=== PATIENT | male | born 1960 | race African-American/Black ===

== ENCOUNTER 2016-06-02 09:18 | Emergency (ER) | payer MEDICAID ==
[2016-06-02] MEDS ORDERED: ASPIRIN 81 MG TABLET, CHEWABLE PO ONE (10:24)
[2016-06-02] MEDS ORDERED: METOCLOPRAMIDE HCL ORAL SOLN 10 MG/10 ML UDCUP PO ONE (10:25)
[2016-06-02] MEDS ORDERED: MAG HYDROX/AL HYDROX/SIMETH SUSP 30 ML UDCUP PO ONE (10:25)
[2016-06-02] MEDS ORDERED: LIDOCAINE 2% VISCOUS SOLN 20 ML UDCUP PO ONE (10:25)
--- NOTE | 2016-06-02 10:30 | ER Document Report ---
ED General - General Chief Complaint: Difficulty Swallowing Stated Complaint: THROAT PAIN Mode of Arrival: Ambulatory Information source: Patient Notes: This is a 55-year-old male with a history of hypertension who presents with complaint of dry mouth and trouble swallowing. He states that for the past 3 days he has had a very dry mouth and he can only swallow when he drinks water because his mouth is so dry. He also states that for the past few weeks he has had intermittent epigastric discomfort and sometimes radiating into his chest. Chart review reveals that he was seen in the emergency department 4 or 5 separate times in 2014 for very similar complaints of mouth dryness, trouble swallowing and chest discomfort. Patient is tolerating PO without difficulty and drinking water in the room. He denies any shortness of breath. No nausea vomiting. No fevers or chills. He has no current chest pain. TRAVEL OUTSIDE OF THE [place] IN LAST 30 DAYS: No - Related Data Allergies/Adverse Reactions: codeine [Codeine] Allergy (Verified 06/02/16 09:29) Generalized Itching esomeprazole magnesium [From Nexium] Allergy (Verified 06/02/16 09:29) Generalized edema Past Medical History - General Information source: Patient, [facility] Records - Social History Smoking Status: Never Smoker Chew tobacco use (# tins/day): No Frequency of alcohol use: Occasional Drug Abuse: None Family History: Reviewed & Not Pertinent Patient has suicidal ideation: No Patient has homicidal ideation: No - Past Medical History Cardiac Medical History: Reports: Hx Hypertension Renal/ Medical History: Denies: Hx Peritoneal Dialysis - Immunizations Immunizations up to date: Yes Hx Diphtheria, Pertussis, Tetanus Vaccination: Yes Review of Systems - Review of Systems Notes: REVIEW OF SYSTEMS: CONSTITUTIONAL : Denies fever, chills, or sweats. Denies recent illness. EENT: Denies eye, ear, or mouth pain or symptoms. Denies nasal or sinus congestion. Dry mouth as per history of present illness CARDIOVASCULAR: As per history of present illness RESPIRATORY: Denies cough, cold, or chest congestion. Denies shortness of breath, difficulty breathing, or wheezing. GASTROINTESTINAL: Denies abdominal pain. Denies nausea, vomiting, or diarrhea. GENITOURINARY: Denies difficulty urinating, painful urination, burning, frequency, or blood in urine. MUSCULOSKELETAL: Denies neck or back pain or joint pain or swelling. SKIN: Denies rash or skin lesions. HEMATOLOGIC : Denies easy bruising or bleeding. LYMPHATIC: Denies swollen, enlarged glands. NEUROLOGICAL: Denies altered mental status or loss of consciousness. Denies headache. PSYCHIATRIC: Denies anxiety or stress or depression. ALL OTHER SYSTEMS REVIEWED AND NEGATIVE. Physical Exam - Vital signs Vitals: Temp Pulse Resp BP Pulse Ox 97.6 F 72 18 138/67 H 98 06/02/16 09:23 06/02/16 09:23 06/02/16 09:23 06/02/16 09:23 06/02/16 09:23 - Notes Notes: PHYSICAL EXAMINATION: GENERAL: Well-appearing, well-nourished and in no acute distress. Pleasant and conversant. Tolerating secretions and drinking a bottle of water. HEAD: Atraumatic, normocephalic. EYES: Pupils equal round and reactive to light, extraocular movements intact, sclera anicteric, conjunctiva are normal. ENT: nares patent, oropharynx clear without exudates. Moist mucous membranes. NECK: Normal range of motion, supple without lymphadenopathy LUNGS: Breath sounds clear to auscultation bilaterally and equal. No wheezes rales or rhonchi. HEART: Regular rate and rhythm without murmurs ABDOMEN: Soft, nontender, obese, normoactive bowel sounds. No guarding, no rebound. No masses appreciated. EXTREMITIES: Normal range of motion, no pitting or edema. No cyanosis. NEUROLOGICAL: Cranial nerves grossly intact. Normal speech. No gross focal motor or sensory deficits appreciated. PSYCH: Normal mood, normal affect. SKIN: Warm, Dry, normal turgor, no rashes or lesions noted. Course - Re-evaluation Re-evalutation: 06/02/16 13:12 Patient states he feels fine and has felt fine since arriving to the ER. He has had no chest pain. We reviewed his labs and his EKG which shows no change from prior. I did discuss the case with his primary care doctor who is very familiar with the patient states he had a negative cardiac catheter in October 2014. He recommends follow-up this week in the clinic. I discussed with the this with the patient is very comfortable with this plan. Strict return precautions were discussed. - Vital Signs Vital signs: Temp Pulse Resp BP Pulse Ox 97.6 F 72 18 138/67 H 97 06/02/16 09:23 06/02/16 09:23 06/02/16 09:23 06/02/16 09:23 06/02/16 11:40 - Laboratory Result Diagrams: 06/02/16 11:43 06/02/16 11:43 - Diagnostic Test Radiology reviewed: Reports reviewed - EKG Interpretation by Me Additional EKG results interpreted by me: 06/02/16 13:14 EKG at 1040 demonstrates normal sinus rhythm with a rate of 64. There is a left axis deviation. There is no significant change from prior EKG. No ST elevation or depression. Discharge - Discharge Clinical Impression: Dry mouth, unspecified Chest pain Qualifiers: Chest pain type: unspecified Qualified Code(s): R07.9 - Chest pain, unspecified Condition: Stable Disposition: HOME, SELF-CARE Additional Instructions: CHEST PAIN OF UNCLEAR CAUSE: The exact cause of your chest pain isn't clear. Fortunately, there is no evidence of a dangerous medical condition. Further testing may be required to find the source of the pain. Most often, we find that this pain is coming from the chest wall -- the muscles or rib joints in the chest. But chest pain can come from the lung and lung lining, the esophagus, the heart valves or heart lining, and even the stomach or gallbladder. Rest. Eat lightly until the pain is gone. We may prescribe medicine for pain and inflammation. You should call the physician immediately if the pain radiates to the shoulder, jaw or arms; if you start to run a fever or develop a cough; or if you develop shortness of breath, or other new or alarming symptoms. NORMAL EXAM AND WORKUP: At this time, your examination and workup show no significant abnormality. No significant abnormal physical findings were noted. All laboratory, EKG, and imaging (x-ray, CT scans, ultrasound) studies that were ordered show no significant abnormality. Although your examination and all studies that were ordered showed no significant abnormal finding, there are no examinations and no studies that are 100% accurate. There is always the possibility that some abnormality could exist and not be detected with physical examination or within the limits and capabilities of laboratory and other studies. You should return or follow up as you were instructed on your visit today for further evaluation if your symptoms do not resolve. FOLLOW-UP CARE: If you have been referred to a physician for follow-up care, call the physician s office for an appointment as you were instructed or within the next two days. If you experience worsening or a significant change in your symptoms, notify the physician immediately or return to the Emergency Department at any time for re-evaluation. Follow up with Dr. Manning next week in the office. Return to the emergency department for any increased chest pain, breathing trouble, fevers, or any worsening symptoms or concerns. Referrals: USAMA MANNING MD [Primary Care Provider] - Follow up as needed
[2016-06-02 12:02] LABS: ABSOLUTE BASOPHILS # (AUTO) 0.1 10^3/uL (0.0-0.2); ABSOLUTE EOSINOPHILS # (AUTO) 0.1 10^3/uL (0.0-0.6); ABSOLUTE MONOCYTES (AUTO) 0.5 10^3/uL (0.1-1.4); ABSOLUTE NEUT (AUTO) 4.3 10^3/uL (1.7-8.2); BASOPHILS % (AUTO) 0.8 % (0-2); EOSINOPHILS % (AUTO) 1.3 % (0-6); HEMATOCRIT 48.2 % (37.9-51.0); HEMOGLOBIN 16.1 g/dL (13.5-17.0); HGB HCT DIFFERENCE 0.1; LYMPHOCYTES % (AUTO) 29.5 % (13-45); MEAN CORPUSCULAR HEMOGLOBIN 30.9 pg (27.0-33.4); MEAN CORPUSCULAR HGB CONC 33.5 g/dL (32.0-36.0); MEAN CORPUSCULAR VOLUME 92 fl (80-97); MONOCYTES % (AUTO) 6.5 % (3-13); RED BLOOD COUNT 5.22 10^6/uL (4.35-5.55); RED CELL DISTRIBUTION WIDTH 12.6 % (11.5-14.0); SEGMENTED NEUTROPHILS % (AUTO) 61.9 % (42-78); WHITE BLOOD COUNT 6.9 10^3/uL (4.0-10.5)
[2016-06-02 12:11] LABS: ALANINE AMINOTRANSFERASE 35 U/L (21-72); ALBUMIN 4.3 g/dL (3.5-5.0); ALKALINE PHOSPHATASE 63 U/L (38-126); ANION GAP 12 (5-19); ASPARTATE AMINO TRANSFERASE 21 U/L (17-59); BILIRUBIN,TOTAL 1.2 mg/dL (0.2-1.3); BLOOD UREA NITROGEN 12 mg/dL (7-20); CALCIUM 10.1 mg/dL (8.4-10.2); CARBON DIOXIDE 29 mmol/L (22-30); CHLORIDE 99 mmol/L (98-107); CREATINE KINASE 76 U/L (55-170); CREATININE RESULT 1.17 mg/dL (0.52-1.25); GLUCOSE 109 mg/dL (75-110); POTASSIUM 4.1 mmol/L (3.6-5.0); SODIUM 140.4 mmol/L (137-145); TOTAL PROTEIN 7.5 g/dL (6.3-8.2)
[2016-06-02 12:26] LABS: CREATINE KINASE MB 0.48 ng/mL (<4.55)
[2016-06-02 12:27] LABS: TROPONIN I < 0.012 ng/mL
[2016-06-02 13:58] VITALS: BP 143/70
--- NOTE | 2016-06-03 16:10 | EKG REPORT ---
SEVERITY:- BORDERLINE ECG - SINUS RHYTHM PROBABLE LEFT ATRIAL ABNORMALITY BORDERLINE LEFT AXIS DEVIATION : Confirmed by: Елена Torrez MD 03-Jun-2016 16:10:21
== END 2016-06-02 13:57 | disposition home or self-care (01) ==
LOC: ER 09:18
DX: R68.2 Dry mouth, unspecified (principal); R07.9 Chest pain, unspecified; R13.10 Dysphagia, unspecified; R19.8 Other specified symptoms and signs involving the digestive system and abdomen; I10 Essential (primary) hypertension; Z88.5 Allergy status to narcotic agent; Z88.8 Allergy status to other drugs, medicaments and biological substances
CPT/HCPCS: 93005; 99283; 36415; 82553; 82550; 84443; 85025; 80053; 84484; 71010; 93010; J3490 ×3

== ENCOUNTER 2016-08-02 08:23 | Emergency (ER) | payer MEDICAID ==
--- NOTE | 2016-08-08 15:52 | RADIOLOGY REPORT (SQ) ---
CORRECTED REPORT EXAM DESCRIPTION: CHEST PA/LAT COMPLETED DATE/TIME: 08/02/2016 1435 pm REASON FOR STUDY: CHEST PAIN COMPARISON: 06/02/2016 EXAM PARAMETERS: NUMBER OF VIEWS: two views TECHNIQUE: Digital Frontal and Lateral radiographic views of the chest acquired. RADIATION DOSE: NA LIMITATIONS: none FINDINGS: LUNGS AND PLEURA: No opacities, masses or pneumothorax. No pleural effusion. MEDIASTINUM AND HILAR STRUCTURES: No masses or contour abnormalities. HEART AND VASCULAR STRUCTURES: Heart normal size. No evidence for failure. BONES: No acute findings. HARDWARE: None in the chest. OTHER: No other significant finding. IMPRESSION: NO SIGNIFICANT RADIOGRAPHIC FINDING IN THE CHEST. TECHNICAL DOCUMENTATION: JOB ID: [id number] [employer]- All Rights Reserved <Electronically signed by SHAVONNE MARTÍNEZ MD in [place]> 08/08/16 1556 [facility]
--- NOTE | 2016-08-09 12:56 | EKG REPORT ---
SEVERITY:- ABNORMAL ECG - SINUS RHYTHM PROBABLE LEFT VENTRICULAR HYPERTROPHY : Confirmed on behalf of: Елена Torrez MD 09-Aug-2016 12:55:15
[2016-08-09 15:09] LABS: PROTHROMBIN TIME 13.6 SEC (11.4-15.4)
[2016-08-09 15:10] LABS: ABSOLUTE BASOPHILS # (AUTO) 0.1 10^3/uL (0.0-0.2); ABSOLUTE EOSINOPHILS # (AUTO) 0.1 10^3/uL (0.0-0.6); ABSOLUTE MONOCYTES (AUTO) 0.4 10^3/uL (0.1-1.4); ABSOLUTE NEUT (AUTO) 5.8 10^3/uL (1.7-8.2); BASOPHILS % (AUTO) 1.2 % (0-2); HEMATOCRIT 47.6 % (37.9-51.0); HEMOGLOBIN 15.8 g/dL (13.5-17.0); HGB HCT DIFFERENCE -0.2; LYMPHOCYTES % (AUTO) 24.3 % (13-45); MEAN CORPUSCULAR HEMOGLOBIN 30.2 pg (27.0-33.4); MEAN CORPUSCULAR HGB CONC 33.1 g/dL (32.0-36.0); MEAN CORPUSCULAR VOLUME 91 fl (80-97); MONOCYTES % (AUTO) 4.7 % (3-13); RED BLOOD COUNT 5.22 10^6/uL (4.35-5.55); RED CELL DISTRIBUTION WIDTH 13.4 % (11.5-14.0); SEGMENTED NEUTROPHILS % (AUTO) 68.8 % (42-78); WHITE BLOOD COUNT 8.4 10^3/uL (4.0-10.5)
[2016-08-10 09:54] LABS: CREATINE KINASE MB 0.42 ng/mL (<4.55); TROPONIN I < 0.012 ng/mL
[2016-08-10 09:55] LABS: ANION GAP 13 (5-19); BLOOD UREA NITROGEN 15 mg/dL (7-20); CALCIUM 10.1 mg/dL (8.4-10.2); CARBON DIOXIDE 29 mmol/L (22-30); CHLORIDE 97 mmol/L (98-107); CREATINE KINASE 77 U/L (55-170); CREATININE RESULT 1.13 mg/dL (0.52-1.25); GLUCOSE 118 mg/dL (75-110); POTASSIUM 4.1 mmol/L (3.6-5.0); SODIUM 139.2 mmol/L (137-145)
== END 2016-08-02 16:58 | disposition home or self-care (01) ==
LOC: ER 08:23
DX: R06.02 Shortness of breath (principal); R07.89 Other chest pain; G89.29 Other chronic pain; F17.200 Nicotine dependence, unspecified, uncomplicated
CPT/HCPCS: 36415; 71020; 80048; 82550; 82553; 84484; 85025; 85610; 93005; 93010; 99285

== ENCOUNTER 2016-09-30 07:24 | Emergency (ER) | payer MEDICAID ==
--- NOTE | 2016-09-30 08:52 | ER Document Report ---
ED Respiratory Problem <ROB MONTAÑO - Last Filed: 09/30/16 10:04> - General Mode of Arrival: Ambulatory Information source: Patient TRAVEL OUTSIDE OF THE [place] IN LAST 30 DAYS: No <PEARL GARCIA - Last Filed: 09/30/16 10:39> - General Chief Complaint: Shortness Of Breath Stated Complaint: SHORTNESS OF BREATH Time Seen by Provider: 09/30/16 08:15 Notes: Patient is a 56-year-old male presents emergency department for shortness of breath. Patient states that he has had shortness of breath progressing over the last 6 months to 1 year. Patient states his shortness of breath is worse today. Patient walks every morning but this morning he did not feel like he could walk because he is feeling so short of breath. Patient is not in respiratory distress. Patient states that his dad and sister have asthma but he has never been diagnosed with asthma himself. Patient also has history of gout. Patient is allergic to codeine and Nexium. Patient is a former patient of Dr. Camarena and has been a patient of Dr. Helms for 2 months. (PEARL GARCIA) - Related Data Allergies/Adverse Reactions: codeine [Codeine] Allergy (Verified 09/30/16 08:43) Generalized Itching esomeprazole magnesium [From Nexium] Allergy (Verified 09/30/16 08:43) Generalized edema Past Medical History - General Information source: Patient - Social History Smoking Status: Current Some Day Smoker Chew tobacco use (# tins/day): No Frequency of alcohol use: None Drug Abuse: Marijuana Family History: None Patient has suicidal ideation: No Patient has homicidal ideation: No - Past Medical History Cardiac Medical History: Reports: Hx Hypercholesterolemia, Hx Hypertension Surgical Hx: Negative - Immunizations Immunizations up to date: Yes Hx Diphtheria, Pertussis, Tetanus Vaccination: Yes <PEARL GARCIA - Last Filed: 09/30/16 10:39> Review of Systems - Review of Systems Constitutional: No symptoms reported EENT: No symptoms reported Cardiovascular: No symptoms reported Respiratory: See HPI, Short of breath Gastrointestinal: No symptoms reported Genitourinary: No symptoms reported Male Genitourinary: No symptoms reported Musculoskeletal: No symptoms reported Skin: No symptoms reported Hematologic/Lymphatic: No symptoms reported Neurological/Psychological: No symptoms reported -: Yes All other systems reviewed and negative <PEARL GARCIA - Last Filed: 09/30/16 10:39> Physical Exam <ROB MONTAÑO - Last Filed: 09/30/16 10:04> - Vital signs Interpretation: Hypertensive <PEARL GARCIA - Last Filed: 09/30/16 10:39> - Vital signs Vitals: Temp Pulse Resp BP Pulse Ox 97.9 F 80 20 153/80 H 97 09/30/16 07:30 09/30/16 07:30 09/30/16 07:30 09/30/16 07:30 09/30/16 07:30 - Notes Notes: GENERAL: Alert, interacts well. No acute distress. HEAD: Normocephalic, atraumatic. EYES: Loss of vision, right eye. Pupils equal, round, and reactive to light. ENT: Moist mucus membranes, tongue midline. NECK: Full range of motion. Supple. Trachea midline. LUNGS: Clear to auscultation bilaterally, no wheezes, rales, or rhonchi. No respiratory distress. HEART: Regular rate and rhythm. No murmurs, gallops, or rubs. ABDOMEN: Obese, soft, non-tender. Non-distended. Normal bowel sounds. EXTREMITIES: Moves all 4 extremities spontaneously. Normal strength. No peripheral edema. NEUROLOGICAL: Alert and oriented x3. Normal speech. No focal neurological deficits. GSC 15. PSYCH: Normal affect, normal mood. SKIN: Warm, dry, normal turgor. No rashes or lesions noted. (PEARL GARCIA) Course - Laboratory Result Diagrams: 09/30/16 08:59 09/30/16 08:59 <ROB MONTAÑO - Last Filed: 09/30/16 10:04> - Laboratory Result Diagrams: 09/30/16 08:59 09/30/16 08:59 <PEARL GARCIA - Last Filed: 09/30/16 10:39> - Re-evaluation Re-evalutation: 09/30/16 10:02 The patient's CBC, Chem-12, cardiac enzymes, and d-dimer are all unremarkable. The pulse ox is normal, the respiratory rate is normal. The workup for the same symptoms 2 months ago showed a normal chest x-ray and normal EKG. (ROB MONTAÑO) - Vital Signs Vital signs: Temp Pulse Resp BP Pulse Ox 97.9 F 80 20 153/80 H 97 09/30/16 07:30 09/30/16 07:30 09/30/16 07:30 09/30/16 07:30 09/30/16 07:30 - Laboratory Laboratory results interpreted by me: 09/30/16 08:59 Glucose 113 H Discharge <ROB MONTAÑO - Last Filed: 09/30/16 10:04> <PEARL GARCIA - Last Filed: 09/30/16 10:39> - Discharge Clinical Impression: Dyspnea Qualifiers: Dyspnea type: shortness of breath Qualified Code(s): R06.02 - Shortness of breath Condition: Stable Disposition: HOME, SELF-CARE Additional Instructions: Dyspnea, Nonspecific: You were evaluated for shortness of breath, or dyspnea. Dyspnea has many causes, and some are more serious than others. Sometimes it's impossible to diagnose the cause of dyspnea with the tests that are available on an emergency basis. Based on our evaluation today, you do not need hospitalization now. We found no evidence of pneumonia, collapsed lung, blood clots in the lung, tumors , or heart failure. Causes of non-specific dyspnea can include asthma or bronchospasm, hyperventilation, emotional distress, heart disease, emphysema, fibrosis of the lung, and stiffness of the chest wall. In healthy individuals with a single episode, it's sometimes reasonable to do nothing but wait to see if the problem occurs again. Additional tests used to evaluate dyspnea can include cardiac stress testing, echocardiography, pulmonary function testing, CAT scan of the chest, bronchoscopy or pulmonary biopsy. Return if shortness of breath persists or worsens, or if you develop chest pain, fever, cough, confusion, or fainting. //////////////////////////////////////////////////////////////////////////////// //////////////////////////////////////////////////////////////////////////////// ////////////////// Follow-up with your primary care provider for pulmonary medicine referral to further evaluate your subjective shortness of breath. RETURN TO THE EMERGENCY ROOM IF ANY NEW OR WORSENING SYMPTOMS. Referrals: USAMA MANNING MD [Primary Care Provider] - Follow up as needed Scribe Attestation: 09/30/16 10:06 I personally performed the services described in the documentation, reviewed and edited the documentation which was dictated to the scribe in my presence, and it accurately records my words and actions. (ROB MONTAÑO) Scribe Documentation - Scribe Written by Scribe:: Elizabeth Oakley, 09/30/2016 10:27 acting as scribe for :: Chan <PEARL GARCIA - Last Filed: 09/30/16 10:39>
[2016-09-30 09:14] LABS: ABSOLUTE EOSINOPHILS # (AUTO) 0.1 10^3/uL (0.0-0.6); ABSOLUTE MONOCYTES (AUTO) 0.5 10^3/uL (0.1-1.4); ABSOLUTE NEUT (AUTO) 5.6 10^3/uL (1.7-8.2); BASOPHILS % (AUTO) 0.5 % (0-2); EOSINOPHILS % (AUTO) 1.2 % (0-6); HEMATOCRIT 44.5 % (37.9-51.0); HEMOGLOBIN 14.6 g/dL (13.5-17.0); HGB HCT DIFFERENCE -0.7; LYMPHOCYTES % (AUTO) 24.4 % (13-45); MEAN CORPUSCULAR HEMOGLOBIN 30.4 pg (27.0-33.4); MEAN CORPUSCULAR HGB CONC 32.8 g/dL (32.0-36.0); MEAN CORPUSCULAR VOLUME 93 fl (80-97); MONOCYTES % (AUTO) 6.2 % (3-13); RED BLOOD COUNT 4.81 10^6/uL (4.35-5.55); RED CELL DISTRIBUTION WIDTH 13.9 % (11.5-14.0); SEGMENTED NEUTROPHILS % (AUTO) 67.7 % (42-78); WHITE BLOOD COUNT 8.2 10^3/uL (4.0-10.5)
[2016-09-30 09:27] LABS: ALANINE AMINOTRANSFERASE 24 U/L (21-72); ALBUMIN 4.1 g/dL (3.5-5.0); ALKALINE PHOSPHATASE 74 U/L (38-126); ANION GAP 11 (5-19); ASPARTATE AMINO TRANSFERASE 20 U/L (17-59); BILIRUBIN,DIRECT 0.2 mg/dL (0.0-0.4); BILIRUBIN,TOTAL 0.8 mg/dL (0.2-1.3); BLOOD UREA NITROGEN 13 mg/dL (7-20); CALCIUM 9.5 mg/dL (8.4-10.2); CARBON DIOXIDE 27 mmol/L (22-30); CHLORIDE 101 mmol/L (98-107); CREATINE KINASE 102 U/L (55-170); CREATININE RESULT 1.03 mg/dL (0.52-1.25); GLUCOSE 113 mg/dL (75-110); POTASSIUM 3.8 mmol/L (3.6-5.0); SODIUM 139.3 mmol/L (137-145); TOTAL PROTEIN 7.4 g/dL (6.3-8.2)
[2016-09-30 11:05] VITALS: BP 127/69
== END 2016-09-30 11:08 | disposition home or self-care (01) ==
LOC: ER 07:24
DX: R06.02 Shortness of breath (principal); I10 Essential (primary) hypertension; F17.200 Nicotine dependence, unspecified, uncomplicated; Z82.5 Family history of asthma and other chronic lower respiratory diseases; Z88.8 Allergy status to other drugs, medicaments and biological substances; Z88.5 Allergy status to narcotic agent
CPT/HCPCS: 36415; 80053; 82550; 84484; 85025; 85379; 99284

== ENCOUNTER 2016-11-08 08:49 | Emergency (ER) | payer MEDICAID ==
[2016-11-08] MEDS ORDERED: ASPIRIN 81 MG TABLET, CHEWABLE PO ONE (09:30)
--- NOTE | 2016-11-08 09:50 | ER Document Report ---
ED Medical Screen (RME) - General Chief Complaint: Shortness Of Breath Stated Complaint: SHORTNESS OF BREATH Time Seen by Provider: 11/08/16 09:28 Notes: Patient presents stating that he feels short of breath. He states that it started this morning. He states he is slowly feeling like he is getting back to normal. He also states that his chest was tight. He states that his last stress test or cardiac evaluation was approximately 4 years ago and he believes everything was normal. Patient states he does have a history of asthma. He denies COPD. He denies being a smoker. Patient denies any history of congestive heart failure. He states he has had no recent cough cold or congestion. TRAVEL OUTSIDE OF THE [place] IN LAST 30 DAYS: No - Related Data Allergies/Adverse Reactions: codeine [Codeine] Allergy (Verified 11/08/16 08:55) Generalized Itching esomeprazole magnesium [From Nexium] Allergy (Verified 11/08/16 08:55) Generalized edema Past Medical History - Social History Chew tobacco use (# tins/day): No Frequency of alcohol use: Social Drug Abuse: None - Past Medical History Cardiac Medical History: Reports: Hx Hypercholesterolemia, Hx Hypertension Pulmonary Medical History: Reports: Hx Asthma Renal/ Medical History: Denies: Hx Peritoneal Dialysis Surgical Hx: Negative - Immunizations Immunizations up to date: Yes Hx Diphtheria, Pertussis, Tetanus Vaccination: Yes
[2016-11-08 10:05] LABS: ABSOLUTE EOSINOPHILS # (AUTO) 0.1 10^3/uL (0.0-0.6); ABSOLUTE LYMPHOCYTES (AUTO) 1.7 10^3/uL (0.5-4.7); ABSOLUTE MONOCYTES (AUTO) 0.5 10^3/uL (0.1-1.4); ABSOLUTE NEUT (AUTO) 5.4 10^3/uL (1.7-8.2); BASOPHILS % (AUTO) 0.6 % (0-2); EOSINOPHILS % (AUTO) 0.8 % (0-6); HEMATOCRIT 44.1 % (37.9-51.0); HEMOGLOBIN 15.1 g/dL (13.5-17.0); HGB HCT DIFFERENCE 1.2; LYMPHOCYTES % (AUTO) 21.6 % (13-45); MEAN CORPUSCULAR HEMOGLOBIN 31.5 pg (27.0-33.4); MEAN CORPUSCULAR HGB CONC 34.2 g/dL (32.0-36.0); MEAN CORPUSCULAR VOLUME 92 fl (80-97); MONOCYTES % (AUTO) 6.1 % (3-13); RED CELL DISTRIBUTION WIDTH 13.3 % (11.5-14.0); SEGMENTED NEUTROPHILS % (AUTO) 70.9 % (42-78); WHITE BLOOD COUNT 7.6 10^3/uL (4.0-10.5)
--- NOTE | 2016-11-08 10:24 | EKG REPORT ---
SEVERITY:- NORMAL ECG - SINUS RHYTHM : Confirmed by: Esperanza Choudhary 08-Nov-2016 10:24:05
--- NOTE | 2016-11-08 10:34 | RADIOLOGY REPORT (SQ) ---
EXAM DESCRIPTION: CHEST PA/LAT COMPLETED DATE/TIME: 11/08/2016 10:25 am REASON FOR STUDY: sob COMPARISON: 08/02/2016, 06/02/2016, 10/19/2014 chest films EXAM PARAMETERS: NUMBER OF VIEWS: two views TECHNIQUE: Digital Frontal and Lateral radiographic views of the chest acquired. RADIATION DOSE: NA LIMITATIONS: none FINDINGS: LUNGS AND PLEURA: No opacities, masses or pneumothorax. No pleural effusion. MEDIASTINUM AND HILAR STRUCTURES: No masses or contour abnormalities. HEART AND VASCULAR STRUCTURES: Heart normal size. No evidence for failure. BONES: No acute changes. Mild thoracic scoliosis HARDWARE: None in the chest. OTHER: No other significant finding. IMPRESSION: NO SIGNIFICANT RADIOGRAPHIC FINDING IN THE CHEST. TECHNICAL DOCUMENTATION: JOB ID: [id number] [employer]- All Rights Reserved
[2016-11-08 10:37] LABS: ALANINE AMINOTRANSFERASE 29 U/L (21-72); ALBUMIN 4.3 g/dL (3.5-5.0); ALKALINE PHOSPHATASE 67 U/L (38-126); ANION GAP 11 (5-19); ASPARTATE AMINO TRANSFERASE 18 U/L (17-59); BILIRUBIN,DIRECT 0.3 mg/dL (0.0-0.4); BILIRUBIN,TOTAL 1.4 mg/dL (0.2-1.3); BLOOD UREA NITROGEN 16 mg/dL (7-20); CALCIUM 9.9 mg/dL (8.4-10.2); CARBON DIOXIDE 29 mmol/L (22-30); CHLORIDE 99 mmol/L (98-107); CREATININE RESULT 1.14 mg/dL (0.52-1.25); GLUCOSE 99 mg/dL (75-110); POTASSIUM 4.1 mmol/L (3.6-5.0); SODIUM 138.5 mmol/L (137-145); TOTAL PROTEIN 7.4 g/dL (6.3-8.2)
--- NOTE | 2016-11-08 10:53 | ER Document Report ---
ED Respiratory Problem <DANYELUSHA MccollumROB - Last Filed: 11/08/16 10:58> - General Mode of Arrival: Ambulatory Information source: Patient TRAVEL OUTSIDE OF THE [place] IN LAST 30 DAYS: No - HPI Patient complains to provider of: Short of breath Chest pain/discomfort: Tightness Associated symptoms: Other - see above <ALEXIS GAMING - Last Filed: 11/08/16 11:01> - General Chief Complaint: Shortness Of Breath Stated Complaint: SHORTNESS OF BREATH Time Seen by Provider: 11/08/16 09:28 Notes: Patient is a 56 year old male who presents to the ED with complaints of SOB that started this morning. Patient states that he had chest tightness. He took his blood pressure medication 1 hour later. He also used his inhaler this morning. Patient states he then felt like he was breathing in hot air. Patient states he is feeling better now. Patient was in the ED 1 month ago with similar symptoms and followed up with Dr. Natanael Nagy and was given an inhaler at that time. (ALEXIS GAMING) - Related Data Allergies/Adverse Reactions: codeine [Codeine] Allergy (Verified 11/08/16 08:55) Generalized Itching esomeprazole magnesium [From Nexium] Allergy (Verified 11/08/16 08:55) Generalized edema Past Medical History - General Information source: Patient - Social History Smoking Status: Never Smoker Chew tobacco use (# tins/day): No Frequency of alcohol use: Social Drug Abuse: None Family History: None Patient has suicidal ideation: No Patient has homicidal ideation: No - Past Medical History Cardiac Medical History: Reports: Hx Hypercholesterolemia, Hx Hypertension Pulmonary Medical History: Reports: Hx Asthma Renal/ Medical History: Denies: Hx Peritoneal Dialysis Surgical Hx: Negative - Immunizations Immunizations up to date: Yes Hx Diphtheria, Pertussis, Tetanus Vaccination: Yes <ALEXIS GAMING - Last Filed: 11/08/16 11:01> Review of Systems - Review of Systems Constitutional: No symptoms reported EENT: No symptoms reported Cardiovascular: See HPI, Other - chest tightness Respiratory: See HPI, Short of breath Gastrointestinal: No symptoms reported Genitourinary: No symptoms reported Male Genitourinary: No symptoms reported Musculoskeletal: No symptoms reported Skin: No symptoms reported Hematologic/Lymphatic: No symptoms reported Neurological/Psychological: No symptoms reported <MEKHIALEXIS - Last Filed: 11/08/16 11:01> Physical Exam - General General appearance: Appears well, Alert In distress: None - HEENT Head: Normocephalic, Atraumatic Eyes: Normal Extraocular movements intact: Yes Pupils: PERRL - Respiratory Respiratory status: No respiratory distress Breath sounds: Normal - Cardiovascular Rhythm: Regular Heart sounds: Normal auscultation Murmur: No - Abdominal Inspection: Normal Distension: No distension Bowel sounds: Normal Tenderness: Nontender - Back Back: Normal - Extremities General upper extremity: Normal inspection, Normal ROM General lower extremity: Normal inspection, Normal ROM. No: Edema - Neurological Neuro grossly intact: Yes - Psychological Associated symptoms: Normal affect, Normal mood - Skin Skin Temperature: Warm Skin Moisture: Dry Skin Color: Normal <MEKHIALEXIS - Last Filed: 11/08/16 11:01> Course - Laboratory Result Diagrams: 11/08/16 09:50 11/08/16 09:50 - Diagnostic Test Radiology reviewed: Image reviewed, Reports reviewed - No acute process on chest x-ray - EKG Interpretation by In EKG shows normal: Sinus rhythm, Widener, Intervals, QRS Complexes, ST-T Waves Rate: Normal - 69 Rhythm: NSR <ROB MONTAÑO - Last Filed: 11/08/16 10:58> - Laboratory Result Diagrams: 11/08/16 09:50 11/08/16 09:50 <MEKHIALEXIS - Last Filed: 11/08/16 11:01> - Laboratory Laboratory results interpreted by me: 11/08/16 09:50 Total Bilirubin 1.4 H Discharge <ROB MONTAÑO - Last Filed: 11/08/16 10:58> <ALEXIS GAMING - Last Filed: 11/08/16 11:01> - Discharge Clinical Impression: Chest tightness Dyspnea Qualifiers: Dyspnea type: unspecified Qualified Code(s): R06.00 - Dyspnea, unspecified Additional Instructions: Chest Pain of Unclear Cause The exact cause of your chest pain isn't clear. Fortunately, there is no evidence of a dangerous medical condition. Further testing may be required to find the source of the pain. Most often, we find that this pain is coming from the chest wall -- the muscles or rib joints in the chest. But chest pain can come from the lung and lung lining, the esophagus, the heart valves or heart lining, and even the stomach or gallbladder. Rest. Eat lightly until the pain is gone. We may prescribe medicine for pain and inflammation. You should call the physician immediately if the pain radiates to the shoulder, jaw or arms; if you start to run a fever or develop a cough; or if you develop shortness of breath, or other new or alarming symptoms. Dyspnea, Nonspecific You were evaluated for shortness of breath, or dyspnea. Dyspnea has many causes, and some are more serious than others. Sometimes it's impossible to diagnose the cause of dyspnea with the tests that are available on an emergency basis. Based on our evaluation today, you do not need hospitalization now. We found no evidence of pneumonia, collapsed lung, blood clots in the lung, tumors , or heart failure. Causes of non-specific dyspnea can include asthma or bronchospasm, hyperventilation, emotional distress, heart disease, emphysema, fibrosis of the lung, and stiffness of the chest wall. In healthy individuals with a single episode, it's sometimes reasonable to do nothing but wait to see if the problem occurs again. Additional tests used to evaluate dyspnea can include cardiac stress testing, echocardiography, pulmonary function testing, CAT scan of the chest, bronchoscopy or pulmonary biopsy. Return if shortness of breath persists or worsens, or if you develop chest pain, fever, cough, confusion, or fainting. FOLLOW UP WITH YOUR DOCTOR THIS WEEK TO DISCUSS THE EPISODE OF CHEST TIGHTNESS. CONTINUE YOUR REGULAR MEDICATIONS. RETURN TO THE EMERGENCY ROOM IF ANY NEW OR WORSENING SYMPTOMS. Referrals: NATANAEL ALBARRAN PA-C [Primary Care Provider] - Follow up as needed Scribe Attestation: 11/08/16 10:58 I personally performed the services described in the documentation, reviewed and edited the documentation which was dictated to the scribe in my presence, and it accurately records my words and actions. (ROB MONTAOÑ) Scribe Documentation - Scribe Written by Smith:: smith Hernandez, 11/08/2016, 1101 acting as scribe for :: Danyel <ALEXIS GAMING - Last Filed: 11/08/16 11:01>
[2016-11-08 11:20] VITALS: BP 144/88
== END 2016-11-08 11:23 | disposition home or self-care (01) ==
LOC: ER 08:49
DX: J45.909 Unspecified asthma, uncomplicated (principal); R06.02 Shortness of breath; R07.89 Other chest pain; I10 Essential (primary) hypertension; Z79.899 Other long term (current) drug therapy; Z88.5 Allergy status to narcotic agent; Z88.8 Allergy status to other drugs, medicaments and biological substances
CPT/HCPCS: 36415; 71020; 80053; 84484; 85025; 93005; 93010; 99285

== ENCOUNTER 2016-12-22 07:41 | Emergency (ER) | payer MEDICAID ==
[2016-12-22 07:46] VITALS: BP 149/60
[2016-12-22] MEDS ORDERED: METHYLPREDNISOLONE INJ 40 MG/1 ML SDV IM ONE (08:09)
--- NOTE | 2016-12-22 08:09 | ER Document Report ---
ED Respiratory Problem - General Chief Complaint: Shortness Of Breath Stated Complaint: DIFFICULTY BREATHING Time Seen by Provider: 12/22/16 07:57 TRAVEL OUTSIDE OF THE [place] IN LAST 30 DAYS: No - HPI Patient complains to provider of: Asthma Onset: Yesterday Duration: Gone now Initiating Event: URI Quality of pain: No pain Severity: None Pain Level: Denies Context: Hx asthma Short of Breath: Mild Cough: Nonproductive Sputum amount: None At home treatment: Bronchodilators Similar symptoms previously: Yes Recently seen / treated by doctor: No - Related Data Allergies/Adverse Reactions: codeine [Codeine] Allergy (Verified 12/22/16 08:03) Generalized Itching esomeprazole magnesium [From Nexium] Allergy (Verified 12/22/16 08:03) Generalized edema Past Medical History - Social History Smoking Status: Never Smoker Family History: None - Past Medical History Cardiac Medical History: Reports: Hx Hypercholesterolemia, Hx Hypertension Pulmonary Medical History: Reports: Hx Asthma Renal/ Medical History: Denies: Hx Peritoneal Dialysis - Immunizations Immunizations up to date: Yes Hx Diphtheria, Pertussis, Tetanus Vaccination: Yes Review of Systems - Review of Systems Constitutional: No symptoms reported Cardiovascular: No symptoms reported Respiratory: See HPI -: Yes All other systems reviewed and negative Physical Exam - Vital signs Vitals: Temp Pulse Resp BP Pulse Ox 97.9 F 86 18 149/60 H 98 12/22/16 07:45 12/22/16 07:45 12/22/16 07:45 12/22/16 07:45 12/22/16 07:45 - Notes Notes: PHYSICAL EXAM GENERAL: Alert, interacts well. HEAD: Normocephalic, atraumatic. EYES: Pupils equal, round, and reactive to light. Extraocular movements intact. ENT: Oral mucosa moist, tongue midline. Uvula midline. Airway patent. No evidence of tonsillar enlargement, peritonsillar abscess, retropharyngeal abscess. NECK: Full range of motion. Supple. Trachea midline. LUNGS: Clear to auscultation bilaterally, no wheezes, rales, or rhonchi. No respiratory distress. HEART: Regular rate and rhythm. No murmurs, gallops, or rubs. NEUROLOGICAL: Alert and oriented x4. Normal speech. PSYCH: Normal affect, normal mood. SKIN: Warm, dry, normal turgor. No rashes or lesions noted. Course - Re-evaluation Re-evalutation: 12/22/16 19:18 Patient is a 56-year-old male who is hemodynamically stable, no acute distress afebrile. Presentation is consistent with an asthma exacerbation treated appropriately with full recovery after at home albuterol. Patient denies any shortness of breath at this time and physical exam is benign for any evidence of respiratory distress. Discussed with patient to follow-up with primary care. After performing a Medical Screening Examination, I estimate there is LOW risk for ACUTE CORONARY SYNDROME, RESPIRATORY FAILURE, SEPSIS OR MENINGITIS, thus I consider the discharge disposition reasonable. I have reevaluated this patient multiple times and no significant life threatening changes are noted. The patient and I have discussed the diagnosis and risks, and we agree with discharging home with close follow-up. We also discussed returning to the Emergency Department immediately if new or worsening symptoms occur. We have discussed the symptoms which are most concerning (e.g., changing or worsening pain, trouble swallowing or breathing, neck stiffness, fever) that necessitate immediate return. - Vital Signs Vital signs: Temp Pulse Resp BP Pulse Ox 97.9 F 86 18 149/60 H 98 12/22/16 07:45 12/22/16 07:45 12/22/16 07:45 12/22/16 07:45 12/22/16 07:45 Discharge - Discharge Clinical Impression: Asthma Qualifiers: Asthma severity: mild Asthma persistence: intermittent Asthma complication type : unspecified Qualified Code(s): J45.20 - Mild intermittent asthma, uncomplicated Condition: Good Disposition: HOME, SELF-CARE Additional Instructions: ASTHMA: You have been diagnosed as having asthma. This is a condition where there is episodic tightness in the bronchial tubes. Allergies, infections, and polluted or cold air may be contributing factors. Emergency treatment of a severe asthma attack may include adrenaline shots , or bronchodilator aerosol. You may feel lightheaded, have a decreased exercise tolerance and a rapid pulse for an hour or two. Rest and get plenty of fluids. Home treatment of asthma requires bronchodilator drugs. These can be administered by injection, inhalation, or by mouth. Antibiotics and corticosteroids may be required for some patients. You should avoid chemical fumes, dusts, pollens, and exercising in very cold or dry air. If you smoke, stop!! If you develop a fever, increased wheezing, chest pain, or severe shortness of breath, you should contact the doctor immediately. USE OF ACETAMINOPHEN: Acetaminophen may be taken for pain relief or fever control. It's much safer than aspirin, offering a wider range of "safe" dosages. It is safe during . Some brand names are Tylenol, Panadol, Datril, Anacin 3, Tempra, and Liquiprin. Acetaminophen can be repeated every four hours. The following are maximum recommended dosages: USE OF ACETAMINOPHEN (Tylenol): Acetaminophen may be taken for pain relief or fever control. It's much safer than aspirin, offering a wider range of "safe" dosages. It is safe during . Some brand names are Tylenol, Panadol, Datril, Anacin 3, Tempra, and Liquiprin. Acetaminophen can be repeated every four hours. The following are maximum recommended dosages: WEIGHT Dose Drops Elixir Chewable( 80mg) (LBS.) drprs=droppers tsp=teaspoon 6 40 mg 0.4 ml (1/2) 6-11 80 mg 0.8 ml (full) tsp 1 tab 12-16 120 mg 1 1/2 drprs 3/4 tsp 1 1/2 tabs 17-23 160 mg 2 drprs 1 tsp 2 tabs 24-30 240 mg 3 drprs 1 1/2 tsp 3 tabs 30-35 320 mg 2 tsp 4 tabs 36-41 360 mg 2 1/4 tsp 4 1/2 tabs 42-47 400 mg 2 1/2 tsp 5 tabs 48-53 480 mg 3 tsp 6 tabs 54-59 520 mg 3 1/4 tsp 6 1/2 tabs 60-64 560 mg 3 1/2 tsp 7 tabs 65-70 600 mg 3 3/4 tsp 7 1/2 tabs 71-76 640 mg 4 tsp 8 tabs 77-82 720 mg 4 1/2 tsp 9 tabs 83-88 800 mg 5 tsp 10 tabs >89 pounds or adults 650 mg to 900 mg Acetaminophen can be repeated every four hours. Maximum dose not to exceed 4000 mg a day. These maximum recommended dosages are slightly higher than the dosages written on the product container, but these dosages are very safe and below the toxic dosage for acetaminophen. FOLLOW-UP CARE: If you have been referred to a physician for follow-up care, call the physician s office for an appointment as you were instructed or within the next two days. If you experience worsening or a significant change in your symptoms, notify the physician immediately or return to the Emergency Department at any time for re-evaluation. Referrals: LANEY ALBARRAN PA-C [PHYSICIAN [employer]OP FORGE OPERATOR] - Follow up in 3-5 days
== END 2016-12-22 08:30 | disposition home or self-care (01) ==
LOC: ER 07:41
DX: J45.20 Mild intermittent asthma, uncomplicated (principal); R06.02 Shortness of breath
CPT/HCPCS: 99284; 96372; J2920

== ENCOUNTER 2016-12-29 08:24 | Emergency (ER) | payer MEDICAID ==
--- NOTE | 2016-12-29 09:47 | ER Document Report ---
ED Respiratory Problem - General Mode of Arrival: Ambulatory Information source: Patient TRAVEL OUTSIDE OF THE [place] IN LAST 30 DAYS: No - HPI Patient complains to provider of: Short of breath Onset: This morning Context: Other - see notes above Associated symptoms: Other - see notes above <YARELY SALCEDO - Last Filed: 12/29/16 09:40> <ROB MONTAÑO - Last Filed: 12/29/16 10:29> - General Chief Complaint: Shortness Of Breath Stated Complaint: SHORTNESS OF BREATH Notes: 56 year old male with history of hypertension presents to the ED complaining of worsening shortness of breath that started last week. Patient states that the shortness of breath is exacerbated in the mornings. Patient saw his PCP, Dr. Lock, last week and was told he has asthma. Patient was given a nebulizer, inhaler, and Prednisone. Patient has been taking the Prednisone as prescribed and using the inhaler as needed, including 0400 and 0700 this morning, but to no relief. (YARELY SALCEDO) - Related Data Allergies/Adverse Reactions: codeine [Codeine] Allergy (Verified 12/29/16 08:37) Generalized Itching esomeprazole magnesium [From Nexium] Allergy (Verified 12/29/16 08:37) Generalized edema Home Medications: Current Home Medications Albuterol Sulfate [Proair Respiclick] 2 puff QID 12/29/16 [History] Amlodipine Besylate 1 tab PO DAILY 12/29/16 [History] Amoxicillin/Potassium Clav [Amox-Clav 875-125 mg Tablet] 1 tab PO BID 12/29/16 [ History] Prednisone 20 mg PO DAILY 12/29/16 [History] Past Medical History - General Information source: Patient - Social History Smoking Status: Never Smoker Chew tobacco use (# tins/day): No Frequency of alcohol use: None Drug Abuse: None Family History: None - Past Medical History Cardiac Medical History: Reports: Hx Hypercholesterolemia, Hx Hypertension Pulmonary Medical History: Reports: Hx Asthma Renal/ Medical History: Denies: Hx Peritoneal Dialysis Surgical Hx: Negative - Immunizations Immunizations up to date: Yes Hx Diphtheria, Pertussis, Tetanus Vaccination: Yes <YARELY SALCEDO - Last Filed: 12/29/16 09:40> Review of Systems - Review of Systems Constitutional: No symptoms reported EENT: No symptoms reported Cardiovascular: No symptoms reported Respiratory: See HPI, Short of breath Gastrointestinal: No symptoms reported Genitourinary: No symptoms reported Male Genitourinary: No symptoms reported Musculoskeletal: No symptoms reported Skin: No symptoms reported Hematologic/Lymphatic: No symptoms reported Neurological/Psychological: No symptoms reported -: Yes All other systems reviewed and negative <YARELY SALCEDO - Last Filed: 12/29/16 09:40> Physical Exam - General General appearance: Alert In distress: None - HEENT Head: Normocephalic, Atraumatic Eyes: Normal Extraocular movements intact: Yes Pupils: PERRL - Respiratory Respiratory status: No respiratory distress. No: Respiratory distress, Tachypnea Breath sounds: Normal - Cardiovascular Rhythm: Regular Heart sounds: Normal auscultation - Abdominal Inspection: Obese Distension: No distension Tenderness: Nontender - Extremities General upper extremity: Normal inspection, Normal strength. No: Edema General lower extremity: Normal inspection, Normal strength. No: Edema - Neurological Neuro grossly intact: Yes - Psychological Associated symptoms: Normal affect, Normal mood - Skin Skin Temperature: Warm Skin Moisture: Dry Skin Color: Normal <SALCEDOYARELY - Last Filed: 12/29/16 09:40> - Vital signs Vitals: Temp Pulse Resp BP Pulse Ox 97.8 F 64 16 140/58 H 99 12/29/16 08:40 12/29/16 08:40 12/29/16 08:40 12/29/16 08:40 12/29/16 08:40 Course <YARELY SALCEDO - Last Filed: 12/29/16 09:40> - Diagnostic Test Radiology reviewed: Image reviewed, Reports reviewed - Chest x-ray is unremarkable <ROB MONTAÑO - Last Filed: 12/29/16 10:29> - Re-evaluation Re-evalutation: 12/29/16 10:27 The patient has been seen here in September, October, and 6 days ago all for shortness of breath. In September he stated he did not have a prior diagnosis of asthma. On all of those visits, including today his lungs are perfectly clear. He also reports that using the inhalers and taking the steroids does not seem to help his shortness of breath. He also states it seems worse when he wakes up in the morning, and it gets much better later in the day. I suspect his symptoms are most likely anxiety driven and that he does not have asthma, however he is a smoker so at some point one would expect him to have some bronchospasm. It is most likely that any real bronchospasm will be related to an upper respiratory tract infection. (ROB MONTAÑO) - Vital Signs Vital signs: Temp Pulse Resp BP Pulse Ox 97.8 F 64 16 140/58 H 99 12/29/16 08:40 12/29/16 08:40 12/29/16 08:40 12/29/16 08:40 12/29/16 08:40 Discharge <YARELY SALCEDO - Last Filed: 12/29/16 09:40> <ROB MONTAÑO - Last Filed: 12/29/16 10:29> - Discharge Clinical Impression: Anxiety, Shortness of breath Condition: Stable Disposition: HOME, SELF-CARE Additional Instructions: Anxiety The physician feels that some of your health problems are being caused by anxiety. Anxiety affects your health in many ways. Anxiety alone can cause palpitations, sweats, chest pains, abdominal pains, shortness of breath, and headaches. It contributes to ulcer disease, high blood pressure, irritable bowel syndrome, and has been shown to cause flare-ups of many other diseases. Anxiety is not a simple disorder to treat. If the anxiety is due to recent life stresses, you may simply need time to "work through" the changes. If the anxiety is due to an underlying unhappiness with yourself or due to psychiatric disturbance, professional help will be needed. Your physician can refer you for further help if needed. Anti-anxiety medication is occasionally given if the stress is acute or if you are having trouble sleeping. Chronic or frequent use of these medications is not a good idea because the body becomes reliant on it, preventing you from dealing with life's normal stresses. All of your visits to the emergency room for shortness of breath have shown normal physical exam of your lungs with normal oxygen levels. The fact that the prednisone and asthma inhalers do not help the shortness of breath are all suggestive that this is more of an anxiety disorder. In September of this year, on an emergency room visit you stated that you did not have a previous history of asthma. You should follow-up with your primary care provider to discuss the possibility that all of your symptoms are due to anxiety. Scribe Attestation: 12/29/16 10:28 I personally performed the services described in the documentation, reviewed and edited the documentation which was dictated to the scribe in my presence, and it accurately records my words and actions. (ROB MONTAÑO) Scribe Documentation - Scribe Written by Elizabeth:: Elizabeth Gill, 12/29/2016 0953 acting as scribe for :: Chan <YARELY SALCEDO - Last Filed: 12/29/16 09:40>
--- NOTE | 2016-12-29 10:05 | RADIOLOGY REPORT (SQ) ---
EXAM DESCRIPTION: CHEST PA/LAT COMPLETED DATE/TIME: 12/29/2016 9:56 am REASON FOR STUDY: SOB COMPARISON: 11/08/2016 07/17/2016, 06/02/2016 chest film EXAM PARAMETERS: NUMBER OF VIEWS: two views TECHNIQUE: Digital Frontal and Lateral radiographic views of the chest acquired. RADIATION DOSE: NA LIMITATIONS: none FINDINGS: LUNGS AND PLEURA: No opacities, masses or pneumothorax. No pleural effusion. MEDIASTINUM AND HILAR STRUCTURES: No masses or contour abnormalities. HEART AND VASCULAR STRUCTURES: Heart normal size. No evidence for failure. BONES: No acute findings. HARDWARE: None in the chest. OTHER: No other significant finding. IMPRESSION: NO SIGNIFICANT RADIOGRAPHIC FINDING IN THE CHEST. TECHNICAL DOCUMENTATION: JOB ID: [id number] [employer]- All Rights Reserved
[2016-12-29 10:45] VITALS: BP 136/91
== END 2016-12-29 10:48 | disposition home or self-care (01) ==
LOC: ER 08:24
DX: R06.02 Shortness of breath (principal); F41.9 Anxiety disorder, unspecified; E78.00 Pure hypercholesterolemia, unspecified; I10 Essential (primary) hypertension; Z88.6 Allergy status to analgesic agent
CPT/HCPCS: 71020; 99285